=== PATIENT | female | born 1945 ===

== ENCOUNTER 2019-01-04 17:24 | Emergency (ER) | payer MEDICARE, BC ==
[2019-01-04 17:44] VITALS: BP 134/73
[2019-01-04 17:58] LABS: Influenza A Molecular POSITIVE (Negative)
[2019-01-04] MEDS ORDERED: Oseltamivir CAP* 75 MG CAP PO ONE (18:15)
[2019-01-04] MEDS ORDERED: Albuterol HFA INHALER* 8 gm MDI INH ONE (18:15)
--- NOTE | 2019-01-04 18:15 | UC ---
FLU HPI - HPI Summary HPI Summary: 73-year-old woman comes in with a chief complaint of influenza-like symptoms that started last night. She has bodyaches chills feels ill. Also reports she' s had some upper respiratory symptoms on and off for the last several weeks including some wheezing and feeling short of breath without. No complaint of any chest pain. Patient reports she does have some pedal edema no calf pain. No prior history of congestive heart failure. - History of Current Complaint Chief Complaint: UCGeneralIllness Stated Complaint: FLU-LIKE SYM Time Seen by Provider: 01/04/19 17:30 Hx Last Menstrual Period: post menopause Pain Intensity: 7 - Allergy/Home Medications Allergies/Adverse Reactions: Allergies Allergy/AdvReac Type Severity Reaction Status Date / Time vancomycin Allergy Hives Verified 01/04/19 17:44 Home Medications: Home Medications Phenylephrine/Dm/Acetaminop/GG [Tylenol Cold-Flu Severe Caplet] 01/04/19 [ History] ValACYclovir (*) [Valtrex 500 mg (*)] 01/04/19 [History] amLODIPine TAB* [Norvasc 5 mg TAB*] 01/04/19 [History] PMH/Surg Hx/FS Hx/Imm Hx Previously Healthy: Yes Cardiovascular History: Hypertension - Surgical History Surgical History: Yes Surgery Procedure, Year, and Place: hip replacement. gall bladder. c sections. breast biopsy - Family History Known Family History: Positive: Non-Contributory - Social History Alcohol Use: Occasionally Substance Use Type: None Smoking Status (MU): Former Smoker Review of Systems All Other Systems Reviewed And Are Negative: Yes Constitutional: Positive: Fever, Chills, Fatigue Skin: Positive: Negative Eyes: Positive: Negative ENT: Positive: Nasal Discharge Respiratory: Positive: Shortness Of Breath, Cough, Other - WHEEZING Cardiovascular: Positive: Negative Gastrointestinal: Positive: Negative Motor: Positive: Negative Neurovascular: Positive: Negative Musculoskeletal: Positive: Myalgia Neurological: Positive: Negative Psychological: Positive: Negative Is Patient Immunocompromised?: No Physical Exam Triage Information Reviewed: Yes Appearance: No Pain Distress, Well-Nourished, Ill-Appearing - MILD Vital Signs: Initial Vital Signs Temp 98.6 F 01/04/19 17:32 Pulse 90 01/04/19 17:32 Resp 16 01/04/19 17:32 BP 134/73 01/04/19 17:32 Pulse Ox 94 01/04/19 17:32 Vital Signs Reviewed: Yes Eye Exam: Normal Eyes: Positive: Conjunctiva Clear ENT: Positive: Pharyngeal erythema, TMs normal Neck exam: Normal Neck: Positive: Supple Respiratory: Positive: Lungs clear, Normal breath sounds, No respiratory distress Cardiovascular: Positive: RRR Musculoskeletal Exam: Normal Musculoskeletal: Positive: Strength Intact, ROM Intact, No Edema, Other: - NO CALF TENDERNESS Neurological Exam: Normal Neurological: Positive: Alert, Muscle Tone Normal Psychological Exam: Normal Psychological: Positive: Normal Response To Family, Age Appropriate Behavior Skin Exam: Normal Flu Course/Dx - Course Course Of Treatment: On lung exam I do not hear any consolidation or wheezing. No pedal edema or calf tenderness on my examination. We discussed getting a chest x-ray however with normal lung sounds we decided to defer the chest x-ray if the patient was not getting any better. Patient will be treated with Tamiflu. Also sent the patient home with albuterol to be used as needed. Patient lives in [place] has just recently moved up here. She reports that in a couple of weeks he's can ago see her doctor [place] for further testing of the shortness breath and fatigue that she's been having. Otherwise if she gets worse she should get reevaluated. - Differential Dx/Diagnosis Provider Diagnosis: Influenza A, Bronchospasm Discharge - Sign-Out/Discharge Documenting (check all that apply): Patient Departure All imaging exams completed and their final reports reviewed: No Studies - Discharge Plan Condition: Stable Disposition: HOME Prescriptions: Oseltamivir CAP* [Tamiflu CAP*] 75 mg PO BID #[id number] Patient Education Materials: Influenza (ED) Referrals: [facility] [place] [facility] [Outside] Additional Instructions: FOLLOW UP WITH YOUR DOCTOR. GET REEVALUATED SOONER IF YOUR CONDITION WORSENS; SHORTNESS OF BREATH OR ANY QUESTIONS OR CONCERNS. - Billing Disposition and Condition Condition: STABLE Disposition: Home
== END 2019-01-04 18:30 | disposition home or self-care (01) ==
LOC: UCEAST 17:24
DX: J11.1 Influenza due to unidentified influenza virus with other respiratory manifestations (principal); J98.01 Acute bronchospasm; I10 Essential (primary) hypertension; Z88.3 Allergy status to other anti-infective agents
CPT/HCPCS: 99203; A9270-GY; G0463